=== PATIENT | female | born 1935 | race Caucasian/White ===

== ENCOUNTER → 2016-04-20 14:00 | Outpatient (CLI) | payer MEDICARE, OTHER ==
[~2016-04-20 14:00] MED LIST: ACETAMINOPHEN500 M1 PO; ASPIRIN325 MG PO; ATIVAN1 MG PO; AZO CRANBERRY PO; COLACE100 MG PO; COZAAR50 MG PO; DUONEB 2.5-0.5 M3 ML UPD; FERROUS SULFAT325 MG PO; HYDROCHLOROTHIA25 MG PO; HYDROCODON-ACE1 EAC7 PO; IPRAT-ALBUT 0.5-3 ML UPD; LEVAQUIN500 MG PO; LOVENOX40 MG/0.4 SC; MEDROL DOSE PACK4 MG PO; MUCINEX1200 MG/BO PO; MUCINEX600 MG PO; NEURONTIN 300300 MG PO; NORVASC2.5 MG PO; PLAVIX75 MG PO; PRAVACHOL20 MG PO; PRILOSEC20 MG PO; RESTORIL7.5 MG PO; SENOKOT-S TABLE1 TAB PO; SPIRIVA18 MCG INH; SYNTHROID50 MCG PO; TENORMIN25 MG PO; TUSSIONEX 5 ML S5 ML PO; VENTOLIN HFA18 GM INH
[2016-04-25 03:08] LABS: OVA + PARASITE EXAM Final report (())
== END | disposition home or self-care (01) ==
LOC: D.LABREF 14:00
PROVIDERS: Family Medicine
DX: R19.7 Diarrhea, unspecified (principal)

== ENCOUNTER 2016-10-29 02:22 | Inpatient (IN) | payer MEDICARE, OTHER ==
[~2016-10-29] VITALS: Ht 154.9 cm; Wt 46.1 kg
[2016-10-29 04:14] LABS: BASOPHILS 0.1 % (0-2); EOSINOPHILS 1.1 % (0-7); HEMATOCRIT 36.6 % (36.0-48.0); HEMOGLOBIN 12.2 g/dL (12-16); IMMATURE GRANULOCYTES 0.8 % (0-5); LYMPHOCYTES 6.1 % (15-50); MCH 30.3 pg (26.0-34.0); MCHC 33.3 g/dL (31.0-37.0); MEAN PLATELET VOLUME 8.7 fL (7.4-10.4); MONOCYTES 3.5 % (2-11); NEUTROPHILS 88.4 % (40-80); PLATELET COUNT 186 10x3/uL (130-400); RBC 4.02 10x6/uL (4.00-5.40); RDW 13.6 % (11.5-14.5)
[2016-10-29 04:30] LABS: ALBUMIN 3.6 g/dL (3.4-5.0); ANION GAP 11.4 mmol/L (8-16); BILIRUBIN - TOTAL 0.52 mg/dL (0.2-1.3); CALCIUM 9.1 mg/dL (8.5-10.1); CARBON DIOXIDE 28.1 mmol/L (21.0-32.0); CREATININE - SERUM 0.9 mg/dL (0.6-1.3); MAGNESIUM - SERUM 1.9 mg/dL (1.8-2.4); POTASSIUM - SERUM 4.5 mmol/L (3.5-5.1); PROTEIN - SERUM 6.3 g/dL (6.4-8.2)
--- NOTE | 2016-10-29 05:01 | NUR ---
RECEIVED FROM ER VIA STRETCHER. ALERT/ORIENTED X 4. RT ARM IN BLACK SLING. C/O RT SHOULDER AND RIB PAIN LEVEL 10 ON NUMBER SCALE. STATED SHE FELL OUT OF BED THIS MORNING. IV IN LEFT FA INTACT SL. ORIENTED TO ROOM AND CALL LIGHT.
[2016-10-29 05:30] VITALS: BP 180/55; BMI 18.7
--- NOTE | 2016-10-29 07:25 | NUR ---
REPORT RECEIVED FROM SOW FARM MANAGER NURSE. CALL LIGHT IN REACH.
[2016-10-29 08:24] VITALS: BP 148/59
--- NOTE | 2016-10-29 08:45 | NUR ---
ASSESSMENT COMPLETE. SL TO L FA. O2 2L NC. SLING IN USE TO R ARM. NONPRODUCTIVE COUGH. DENIES ANY NEEDS AT THIS TIME.
--- NOTE | 2016-10-29 10:03 | NUR ---
EYES CLOSED AT THIS TIME. RESP EVEN AND UNLABORED. CALL LIGHT IN REACH.
[2016-10-29 12:00] VITALS: BP 174/55
--- NOTE | 2016-10-29 12:29 | NUR ---
COMPLAINING OF PAIN. MORPHINE GIVEN SLOW IVP. REPOSITIONED IN BED AND TRAY SETUP TO EAT.
--- NOTE | 2016-10-29 14:20 | NUR ---
SCDs APPLIED TO BLE THERESA SHINE RN. HEART MONITOR ALSO PLACED ON THERESA SHINE.
--- NOTE | 2016-10-29 15:32 | NUR ---
NORCO AND ATENOLOL PO. PEPCID IVP. SCDs ON. CALL LIGHT IN REACH.
[2016-10-29 16:00] VITALS: BP 168/70
--- NOTE | 2016-10-29 18:20 | NUR ---
NO CHANGES IN INITIAL ASSESSMENT. SCDs TO BLE. DISPOSABLE BED ALARM IS ON. CALL LIGHT IN REACH. WILL CONTINUE WITH PLAN OF CARE.
[2016-10-29 19:00] VITALS: BP 117/98
--- NOTE | 2016-10-29 20:00 | NUR ---
ASSESSMENT PER FLOWSHEET. IV PATENT LEFT FOREARM SALINE LOCKED. SLING TO RT ARM. TELM. SHOWS SR. SR UP X2 CALL LIGHT WITHIN REACH. BOX ALARM ON. SCD'S ON.
--- NOTE | 2016-10-29 20:30 | NUR ---
PATIENT TRYING TO CLIMB OUT OF BED TOOK TELM. OFF AND ONE OF HER SCD'S TOOK HER SLING OFF HER RT ARM. ASSISTED BACK IN BED PLACED ADDISON BED ALARM MAT ON HER BED. ALARMS ACTIVATED.
--- NOTE | 2016-10-29 21:00 | NUR ---
MEDS GIVEN PER MAR.
--- NOTE | 2016-10-29 21:24 | NUR ---
RESLESS PULLING TELM. OFF TRYING TO GET OUT OF BED SETTING OFF ALARMS. REPOSITIONED IN BED ATIVAN 1MG PO GIVEN FOR RESTLESSNESS.
--- NOTE | 2016-10-29 23:00 | NUR ---
INC URINE LINENS CHANGED.
--- NOTE | 2016-10-30 00:30 | NUR ---
EYES CLOSED RESPIRATIONS WITH EASE AND UNLABORED.
--- NOTE | 2016-10-30 02:07 | NUR ---
EYES CLOSED RESPIRATIONS WITH EASE AND UNLABORED.
[2016-10-30 04:00] VITALS: BP 184/75
--- NOTE | 2016-10-30 04:00 | NUR ---
EYES CLOSED RESPIRATIONS WITH EASE AND UNLABORED.
--- NOTE | 2016-10-30 06:10 | NUR ---
INC URINE BED BATH WITH LINENS CHANGED. REPLACED HEART MONITOR. REACTIVATED ADDISON BED ALARM MAT. MEDS GIVEN PO IN APPLESAUCE. PT TALKING SEEMS TO BE MORE ALERT.
--- NOTE | 2016-10-30 08:20 | NUR ---
ASSESSMENT PER FLOW SHEET.PT WITHOUT DISTRESS,BUT VERY CONFUSED.02 AT 2 LITERS NASAL CANULA.PT REFUSES TO LET ME LISTEN TO HER HEART AND LUNGS.SHE STATES IS HAS BEEN DONE TWICE TODAY ALREADY AND SHE WASNT GOING TO HAVE IT DONE AGAIN.BRUISES NOTED TO RIGHT SHOULDER AND BACK.BRUISE NOTED TO LEFT INNER ANKLE.ADDISON MAT AND BOX ALARM IN PLACE AND FUNCTIONING.DOOR OPEN TO MONITOR
[2016-10-30 10:16] VITALS: BP 168/69
[2016-10-30 12:10] VITALS: BP 130/64
--- NOTE | 2016-10-30 12:15 | NUR ---
PULLING CLOTHES OFF AND 02 OFF.PT TRYING TO GET OUT OF BED.SAYS SHE HAS TO GO IN OFFICE BEFORE HER BOSS COMES BACK.MILDLY COMBATIVE.MEDS ORDERED PER JUN.
--- NOTE | 2016-10-30 13:12 | NUR ---
WOUND CARE CONSULT: PT REPORTS THAT SHE FELL OUT OF BED AND "FRACTURED HER HIPS" BUT THEN STATES THAT THEY WERE FIXED IN [place], [place]. ADDISON ALARM AND BOX ALARM ARE ON AND IN USE. PATIENT IS INCONTIENT OF URINE. WILL ASSISTANCE FROM PCT, PATIENT IS CLEANED AND BED LINENS ARE CHANGED. ENTIRE RIGHT SHOULDER SEEN WITH BRUISED AREA ALONG WITH THE INNER LEFT ANKLE A BRUISE. PATIENT IS MOVING BILATERAL LEGS AROUND WITH NO DISCOMFORT NOTED. WILL CARE WILL FOLLOW NEEDED.
[2016-10-30 13:42] VITALS: Ht 154.9 cm; Wt 46.1 kg
[2016-10-30 14:14] LABS: HEMATOCRIT 35.9 % (36.0-48.0); HEMOGLOBIN 12.4 g/dL (12-16); MCH 30.9 pg (26.0-34.0); MCHC 34.5 g/dL (31.0-37.0); MCV 89.5 fL (80.0-100.0); MEAN PLATELET VOLUME 8.4 fL (7.4-10.4); RBC 4.01 10x6/uL (4.00-5.40); RDW 14.1 % (11.5-14.5); WBC 18.1 10x3/uL (4.8-10.8)
[2016-10-30 14:27] LABS: APTT 29.8 SECONDS (22.8-39.4); INR 1.19 (0.85-1.17); PROTIME 14.9 SECONDS (11.6-15.0)
[2016-10-30 14:29] LABS: ANION GAP 11.7 mmol/L (8-16); CARBON DIOXIDE 27.4 mmol/L (21.0-32.0); CREATININE - SERUM 0.8 mg/dL (0.6-1.3); POTASSIUM - SERUM 4.1 mmol/L (3.5-5.1)
[2016-10-30 15:51] VITALS: BP 158/46
--- NOTE | 2016-10-30 17:25 | NUR ---
STILL CONFUSED.BOX AND BED ALARM ON AND FUNCTIONING.REMAINS WITHOUT CHANGE FROM INITIAL SHIFT ASSESSMENT.CONT PLAN OF CARE
[2016-10-30 19:00] VITALS: BP 163/61
--- NOTE | 2016-10-30 20:00 | NUR ---
ASSESSMENT PER FLOWSHEET. REMAINS CONFUSED. REFUSES TO WEAR FIGURE 8 BRACE. SALINE LOCK PATENT TO LEFT ARM SITE CLEAR. ADDISON BED ALARM MAT ON WITH BOX ALARM ON TELM. ON AT TIMES.
--- NOTE | 2016-10-30 21:00 | NUR ---
INC URINE COMPLETE BED CHANGE AND PARTIAL BATH. MEDS PER JUN.
--- NOTE | 2016-10-31 | NUR ---
RESTING WITH EYES CLOSED RESPIRATIONS WITH EASE AND UNLABORED.
--- NOTE | 2016-10-31 03:00 | NUR ---
INC URINE COMPLETE LINENS CHANGED WITH PARTIAL BATH.
[2016-10-31 04:00] VITALS: BP 113/63
[2016-10-31 06:02] LABS: BASOPHILS 0.1 % (0-2); EOSINOPHILS 0.1 % (0-7); HEMATOCRIT 34.5 % (36.0-48.0); HEMOGLOBIN 11.7 g/dL (12-16); IMMATURE GRANULOCYTES 0.4 % (0-5); LYMPHOCYTES 5.6 % (15-50); MCH 30.6 pg (26.0-34.0); MCHC 33.9 g/dL (31.0-37.0); MCV 90.3 fL (80.0-100.0); MEAN PLATELET VOLUME 9.5 fL (7.4-10.4); MONOCYTES 5.9 % (2-11); NEUTROPHILS 87.9 % (40-80); PLATELET COUNT 185 10x3/uL (130-400); RBC 3.82 10x6/uL (4.00-5.40); RDW 13.6 % (11.5-14.5); WBC 15.1 10x3/uL (4.8-10.8)
--- NOTE | 2016-10-31 06:53 | NUR ---
REMAINS CONFUSED BUT CAN TALK TO HER AND CAN MAKE SOME SENSE OF WHAT SHE SAYS. SR UP X3 CALL LIGHT WITHIN REACH.
--- NOTE | 2016-10-31 07:20 | NUR ---
ASSESSMENT PER FLOW SHEET.PT STILL CONFUSED THIS AM.SHE IS WITHOUT DISTRESS.FALL PREVENTION IN PLACE WITH ADDISON MAT AND BOX ALARM IN PLACE AND FUNCTIONING.DR. RICKS TO SEE PATIENT.DOOR OPEN TO MONITOR.
[2016-10-31 08:09] VITALS: BP 136/61
--- NOTE | 2016-10-31 08:18 | NUR ---
TO CT VIA BED
[2016-10-31 11:59] VITALS: BP 137/62
--- NOTE | 2016-10-31 15:04 | NUR ---
CM NOTE: CM CALLED (YUE LEAG. TO CALL CM) PATIENTS SPOUSE (COSTA) REGARDING D/C NEEDS AND PLANS. PATIENT IS TOO CONFUSED TO ANSWER QUESTIONS. CM WILL CALL AGAIN TOMORROW - IF NO CALL BACK TODAY.
[2016-10-31 15:19] VITALS: BP 154/58
[2016-10-31 19:00] VITALS: BP 187/61
--- NOTE | 2016-10-31 19:37 | NUR ---
REMAINS WITHOUT NEEDS.STILL CONFUSED.FALL PREVENTION IN PLACE.CONT PLAN OF CARE
--- NOTE | 2016-10-31 20:00 | NUR ---
ASSESSMENT PER FLOWSHEET. REMAINS CONFUSED TO PLACE AND TIME. SR UP X3 CALL LIGHT WITHIN REACH ADDISON BED ALARM MAT ON. DOOR OPENED. HOB UP 30DEGREES. WET COUGH NOTED AT TIMES.
--- NOTE | 2016-10-31 21:00 | NUR ---
MEDS GIVEN IN APPLESAUCE.
--- NOTE | 2016-10-31 22:30 | NUR ---
INC URINE BED BATH AND LINENS CHANGED DONE.
--- NOTE | 2016-11-01 02:00 | NUR ---
RESTING QUIETLY PULLS AT BED LINENS.
[2016-11-01 04:00] VITALS: BP 182/55
--- NOTE | 2016-11-01 04:30 | NUR ---
INC URINE IV PATENT LEFT WRIST OF D5NS INFUSING AT 75CC'S/HR SITE CLEAR. PARTIAL BED BATH WITH LINENS CHANGED DONE.
--- NOTE | 2016-11-01 06:00 | NUR ---
NO CHANGES IN ASSESSMENT. MEDS GIVEN PER JUN. IN APPLESAUCE.
--- NOTE | 2016-11-01 07:15 | NUR ---
CALL FROM FAMILY.PASSWORD CONFIRMED. THEY WILL BE HERE TO SEEPT IN 9 HOURS.
--- NOTE | 2016-11-01 07:30 | NUR ---
ASSESSMENT PER FLOW SHEET. TO SEE PT.SHE IS WITHOUT DISTRESS.SHE IS LESS CONFUSED THIS AM.LUNGS HOOD HAVE KRACKLES THROUGHOUT UPPER LOBES WITH UPPER AIRWAY CONGESTION.PT COUGHS WHEN COMMANDED,BUT NO SPUTUM IS NOTED.FALL PREVENTION IN PLACE WITH ADDISON MAT AND BOX ALARM IN PLACE AND FUNCTIONING.DOOR OPEN.
[2016-11-01 08:21] VITALS: BP 172/55
--- NOTE | 2016-11-01 08:30 | NUR ---
CALL FROM FAMILY AGAIN,PASSWORD CONFIRMED.PT UPDATE GIVEN
[2016-11-01 09:03] LABS: BASOPHILS 0.1 % (0-2); EOSINOPHILS 0.1 % (0-7); HEMATOCRIT 31.9 % (36.0-48.0); HEMOGLOBIN 10.7 g/dL (12-16); IMMATURE GRANULOCYTES 0.2 % (0-5); MCH 30.8 pg (26.0-34.0); MCHC 33.5 g/dL (31.0-37.0); MCV 91.9 fL (80.0-100.0); MEAN PLATELET VOLUME 9.4 fL (7.4-10.4); MONOCYTES 6.6 % (2-11); PLATELET COUNT 159 10x3/uL (130-400); RBC 3.47 10x6/uL (4.00-5.40); RDW 14.1 % (11.5-14.5); WBC 13.2 10x3/uL (4.8-10.8)
[2016-11-01 09:15] LABS: CALC OSMOLALITY 288 mosm/kg (275-300); CALCIUM 8.6 mg/dL (8.5-10.1); CARBON DIOXIDE 23.9 mmol/L (21.0-32.0); CHLORIDE - SERUM 108 mmol/L (98-107); GLUCOSE 169 mg/dL (74-106); POTASSIUM - SERUM 3.5 mmol/L (3.5-5.1); SODIUM 142 mmol/L (136-145); UREA NITROGEN 19 mg/dL (7-18)
[2016-11-01 09:21] LABS: CREATININE - SERUM 0.5 mg/dL (0.6-1.3); eGFR NON AFRICAN AMERICAN > 90 mL/min (90-120)
[2016-11-01 12:37] VITALS: BP 159/46
--- NOTE | 2016-11-01 14:05 | NUR ---
NUTRITION MONITORING & EVAL CHART REVIEWED. PT VISIT. TOLERATING MECH SOFT DIET BUT INTAKE REMAINS POOR. ~10% LUNCH. NOTE NPO AFTER MN. RD FOLLOWING
[2016-11-01 15:54] VITALS: BP 167/51
[2016-11-01 19:00] VITALS: BP 173/57
--- NOTE | 2016-11-01 20:00 | NUR ---
ASSESSMENT PER FLOWSHEET. IV PATENT LEFT WRIST OF D5NS AT 75CC'S/HR SITE CLEAR. SR UP X3 CALL LIGHT WITHIN REACH ADDISON BEDALARM MAT IN PLACE AND ACTIVATED. BILATERAL CRACKLES NOTED HOB UP 30 DEGREES. PT REMAINS CONFUSED. PT'S DAUGHTER AT BEDSIDE. SCD'S ON.
--- NOTE | 2016-11-01 21:15 | NUR ---
MEDS GIVEN PER MAR.
--- NOTE | 2016-11-01 21:30 | NUR ---
PT PULLS OUT IV DAUGHTER HAS GONE HOME FOR THE NIGHT. RESITED IV TO LEFT ARM #20X1 ATTEMPT. RESUMED IV FLUIDS. ARM WRAPPED IN GAUZE WRAP. TELM. SHOWS ST WITH HR 102. DAUGHTER STATES WILL SIGN PERMITS IN AM FOR SURGERY.
--- NOTE | 2016-11-01 22:00 | NUR ---
INC URINE LINENS CHANGED.
[2016-11-02] VITALS: BP 103/69
--- NOTE | 2016-11-02 | NUR ---
RESTING AT THIS TIME.
[2016-11-02 04:00] VITALS: BP 181/63
[2016-11-02 05:51] LABS: BASOPHILS 0.1 % (0-2); EOSINOPHILS 0.1 % (0-7); HEMATOCRIT 29.3 % (36.0-48.0); HEMOGLOBIN 9.8 g/dL (12-16); IMMATURE GRANULOCYTES 0.4 % (0-5); LYMPHOCYTES 4.2 % (15-50); MCHC 33.4 g/dL (31.0-37.0); MCV 92.7 fL (80.0-100.0); MEAN PLATELET VOLUME 9.5 fL (7.4-10.4); NEUTROPHILS 87.2 % (40-80); PLATELET COUNT 178 10x3/uL (130-400); RBC 3.16 10x6/uL (4.00-5.40); RDW 14.3 % (11.5-14.5)
[2016-11-02 06:02] LABS: CALC OSMOLALITY 286 mosm/kg (275-300); CALCIUM 8.4 mg/dL (8.5-10.1); CARBON DIOXIDE 26.3 mmol/L (21.0-32.0); CHLORIDE - SERUM 109 mmol/L (98-107); CREATININE - SERUM 0.6 mg/dL (0.6-1.3); GLUCOSE 123 mg/dL (74-106); POTASSIUM - SERUM 3.3 mmol/L (3.5-5.1); SODIUM 143 mmol/L (136-145); eGFR NON AFRICAN AMERICAN > 90 mL/min (90-120)
[2016-11-02 06:06] LABS: UREA NITROGEN 14 mg/dL (7-18)
[2016-11-02 06:07] LABS: WBC 9.6 10x3/uL (4.8-10.8)
--- NOTE | 2016-11-02 08:10 | NUR ---
ASSESSMENT COMPLETE. IV TO L FA PATENT. D5NS INFUSING AT 75 CC/HR VIA PUMP. O2 2L NC IN USE. CLINICAL DIRECTOR SHOWING SR 87 PER TECH. INCONT OF BLADDER. NPO. ADDISON MAT IN USE. SCD'S IN USE TO BILAT LEGS. DAUGHTER AT BEDSIDE.
[2016-11-02 08:15] VITALS: BP 139/55
[2016-11-02 08:37] LABS: % SATURATION 4 % (15-55); IRON 10 ug/dl (35-150); TOTAL IRON BIND CAPACITY 213 ug/dl (260-445); UNSAT IRON BIND CAPACITY 203 ug/dl (150-375)
[2016-11-02 11:41] VITALS: BP 123/57
--- NOTE | 2016-11-02 12:00 | NUR ---
NO CHANGES NOTED AT PRESENT. FAMILY AT BEDSIDE.
--- NOTE | 2016-11-02 14:44 | NUR ---
CM REASSESSMENT NOTE: PATIENT IS HAVING SURGERY TODAY/FAMILY AT BEDSIDE. FAMILY HOPING FOR IP REHAB AND THEN ONCE DISCHARGED FROM REHAB WOULD BE STRONG ENOUGH FOR TRAVEL TO [facility] HOME. CM WILL CONTINUE TO FOLLOW PATIENT WITH D/C NEEDS AND PLANS.
--- NOTE | 2016-11-02 14:51 | NUR ---
CM REASSESSMENT NOTE: PATIENT IS HAVING SURGERY TODAY/FAMILY AT BEDSIDE. FAMILY HOPING FOR IP REHAB AND THEN ONCE DISCHARGED FROM REHAB WOULD BE STRONG ENOUGH FOR TRAVEL TO [facility] HOME. CM WILL CONTINUE TO FOLLOW PATIENT WITH D/C NEEDS AND PLANS.
[2016-11-02 16:00] VITALS: BP 185/68
--- NOTE | 2016-11-02 17:00 | NUR ---
DR GARNETT BY TO SEE PATIENT. SURGERY IS RESCHEDULED FOR TOMORROW. PATIENT AND FAMILY AWARE.
[2016-11-02 22:49] VITALS: BP 102/47
[2016-11-03] VITALS (16 sets, daily range): BP systolic 143–199; BP diastolic 51–88
--- NOTE | 2016-11-03 04:45 | NUR ---
PT CONFUSED AND RESTLESS. CALLED DR. RICKS CONCERNING WET BREATH SOUNDS. TURNED DOWN IV FLUIDS TO KVO, GAVE LASIX IV PUSH AND PLACED DAVIDSON CATHETER PER TELEPHONE ORDER @ 2200. PT PULLED CATHETER OUT BULB INTACT 20 MINUTES AFTER PLACEMENT. PT THEN PULLED IV OUT. CHANGING BED FREQUENTLY. PT'S OXYGEN SATS ARE GOOD IF OXYGEN IS ON. OXYGEN @ 2.5L/NC. BUT PT CONSTANTLY TAKING OXYGEN OFF THEN DESATS. PT HAS NOT SLEPT THIS SHIFT. DAUGHTER AT BEDSIDE. WILL CONTINUE TO MONITOR.
[2016-11-03 06:22] LABS: BASOPHILS 0.1 % (0-2); EOSINOPHILS 0.2 % (0-7); HEMATOCRIT 33.6 % (36.0-48.0); HEMOGLOBIN 11.2 g/dL (12-16); IMMATURE GRANULOCYTES 0.3 % (0-5); LYMPHOCYTES 5.5 % (15-50); MCH 30.9 pg (26.0-34.0); MCHC 33.3 g/dL (31.0-37.0); MCV 92.6 fL (80.0-100.0); MEAN PLATELET VOLUME 9.2 fL (7.4-10.4); MONOCYTES 6.1 % (2-11); NEUTROPHILS 87.8 % (40-80); RBC 3.63 10x6/uL (4.00-5.40); RDW 14.1 % (11.5-14.5); WBC 11.7 10x3/uL (4.8-10.8)
[2016-11-03 06:26] LABS: PLATELET COUNT 237 10x3/uL (130-400)
[2016-11-03 06:42] LABS: CARBON DIOXIDE 27.8 mmol/L (21.0-32.0); CHLORIDE - SERUM 105 mmol/L (98-107); CREATININE - SERUM 0.7 mg/dL (0.6-1.3); GLUCOSE 99 mg/dL (74-106); SODIUM 145 mmol/L (136-145); eGFR NON AFRICAN AMERICAN 85 mL/min (90-120)
--- NOTE | 2016-11-03 06:52 | NUR ---
SITED IV 1ST ATTEMPT TO RIGHT FOREARM 20 GAUGE. PREOPED FOR SURGERY.
[2016-11-03 07:05] LABS: CALC OSMOLALITY 290 mosm/kg (275-300); UREA NITROGEN 19 mg/dL (7-18)
--- NOTE | 2016-11-03 07:25 | NUR ---
OFF FLOOR TO OR VIA BED. FAMILY DECIDED TO WAIT IN ICU WAITING ROOM.
[2016-11-03 08:20] LABS: FOLATE (FOLIC ACID) - SERUM 8.4 ng/mL (>3.0)
--- NOTE | 2016-11-03 09:40 | NUR ---
RECEIVED PT FROM OR POST ORIF RT SHOULDER, DENIES PT, HTN PRIOR TO SURGERY AND REMAINS IN THAT RANGE , DR. WARD AWARE.
--- NOTE | 2016-11-03 10:30 | NUR ---
RECIEVED PT TO ROOM FROM OR. VSS, BP 166/68. PRE OP HTN NOTED. CONNECTED TO ICU MONITORS. FULL ASSESSMENT COMPLETE PER FLOWSHEET. BED ALARM ON AND BED IN LOW POSITION. WILL MONITOR.
--- NOTE | 2016-11-03 10:54 | NUR ---
Nutrition Follow Up: Chart reviewed and spoke with RN. DHT placed and Pulmocare @ 10 ml/hr ordered per MD. Pt is s/p ORIF Clavicle. Wt stable. No BM since admit (x5 d). Labs reviewed. Meds noted including Lasix. Will put order in to advance TF 10 ml every 12 hours as tolerated to goal rate of 35 ml/hr. Water flushes 25 ml/hr. Goal rate will provide 1260 kcal, 52 g protein and 651 ml free water per day. 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 RD will continue to monitor pt progress.
--- NOTE | 2016-11-03 12:00 | NUR ---
FAMILY AT BEDSIDE. UPDATE PROVIDED.
[2016-11-03 13:17] LABS: HAPTOGLOBIN <10 mg/dL (34-200)
--- NOTE | 2016-11-03 13:50 | NUR ---
1245-PT PULLED DOBHOFF OUT OF NOSE. WILL REPORT TO DR. RICKS. 1330- 16F DAVIDSON CATHETER PLACED AND 14F NGT DROPPED. PT NOT COOPERATIVE WHILE TRYING TO PLACED DAVIDSON AND NGT. WILL CALL REPORT TO PHYSICIAN.
--- NOTE | 2016-11-03 15:00 | NUR ---
FAMILY AT BEDSIDE.
--- NOTE | 2016-11-03 15:33 | NUR ---
DR. ERICKSON UPDATED FAMILY. QUESTIONS AND CONCERNS ANSWERED.
--- NOTE | 2016-11-03 15:53 | NUR ---
SPOKE WITH MICHELLE ISBELL. STATES SHE WILL SPEAK TO DR. GARNETT ABOUT XRAY AND CALL BACK IF XRAY NEEDS TO BE CANCELLED.
--- NOTE | 2016-11-03 17:15 | NUR ---
PT REMAINS RESTRAINED. MORE COOPERATIVE AT THIS TIME. BP IMPROVING NOW 111/71. REMAINS ON 4L OXYMIZER. WILL CONT TO ASSESS.
--- NOTE | 2016-11-03 18:48 | NUR ---
PT TOO CONFUSED TO PERFORM EZPAP
--- NOTE | 2016-11-03 19:45 | NUR ---
PT CONFUSED AND DISORIENTED X3. UNABLE TO FOLLOW MOST COMMANDS AT THIS TIME. RIGHT SHOULDER WITH DSG CDI, NO S/S OF BLEEDING PRESENT. NO C/O PAIN AT THIS TIME. PT REPOSITIONED WITH BONY PROMINENCES BRIDGED. S1S2 AUSCULTATED, PERIPHERAL PULSES PRESENT. RESPIRATIONS SHALLOW, LUNG SOUNDS CRACKLES. SPO2 96 WITH YL O2 VIA OXYMIZER. BOWEL SOUNDS ACTIVE X4. DAVIDSON CATH INTACT. PT ATTEMPT TO PULL AT NGT, NC, DAVIDSON, AND IV LINES. BILATERAL WRIST RESTRAINTS IN USE. PT TOO CONFUSED TO USE INCENTIVE SPIROMETER. WILL USE FLUTTER SOME. WILL CONTINUE TO MONITOR.
--- NOTE | 2016-11-03 23:40 | NUR ---
PT HAS PULLED NGT OUT. REMAINS CONFUSED AND DISORIENTED. UNABLE TO REINSERT NGT DUE TO TRAUMA. WILL NOTIFY IN AM.
[2016-11-04] VITALS (24 sets, daily range): BP systolic 128–176; BP diastolic 56–71
--- NOTE | 2016-11-04 03:45 | NUR ---
REASSESSMENT COMPLETE, SEE FLOWSHEET FOR ALL FINDINGS. NO ACUTE CHANGES AT THIS TIME. PT REPOSITIONED FOR COMFORT. ORAL CARE PROVIDED. PARTIAL LINEN CHANGE COMPLETE. UNABLE TO USE INCENTIVE SPIROMETER/FLUTTER AT THIS TIME DUE TO CONFUSION.
[2016-11-04 05:02] LABS: BASOPHILS 0 % (0-2); EOSINOPHILS 0 % (0-7); HEMATOCRIT 32.7 % (36.0-48.0); HEMOGLOBIN 10.9 g/dL (12-16); IMMATURE GRANULOCYTES 0.3 % (0-5); LYMPHOCYTES 3.8 % (15-50); MCH 30.2 pg (26.0-34.0); MCHC 33.3 g/dL (31.0-37.0); MONOCYTES 6.3 % (2-11); NEUTROPHILS 89.6 % (40-80); PLATELET COUNT 262 10x3/uL (130-400); RBC 3.61 10x6/uL (4.00-5.40); RDW 13.8 % (11.5-14.5); WBC 12.8 10x3/uL (4.8-10.8)
[2016-11-04 05:15] LABS: MCV 90.6 fL (80.0-100.0)
[2016-11-04 05:23] LABS: CALC OSMOLALITY 289 mosm/kg (275-300); CALCIUM 9.1 mg/dL (8.5-10.1); CARBON DIOXIDE 29.7 mmol/L (21.0-32.0); CHLORIDE - SERUM 104 mmol/L (98-107); CREATININE - SERUM 0.7 mg/dL (0.6-1.3); GLUCOSE 110 mg/dL (74-106); SODIUM 143 mmol/L (136-145); eGFR NON AFRICAN AMERICAN 85 mL/min (90-120)
[2016-11-04 05:33] LABS: UREA NITROGEN 24 mg/dL (7-18)
--- NOTE | 2016-11-04 05:48 | NUR ---
UPDATED MD OF PT STATUS. MD AWARE OF ABSENCE OF NGT.
--- NOTE | 2016-11-04 18:56 | NUR ---
0715-RECIEVED PER-FLOW SHEET- SPEECH GARBLED-DIFFICULT TO UNDERSTAND-DOES NOT FOLLOW COMMANDS-SOFT RESTRAINTS IN PLACE 0900-DR BUENROSTRO AT [facility]-ICE BAG REMOVED-OKAYED COMPLETE ROM TO R ARM 1200-PT ABLE TO STATE-LOCATION TO FAMILY AND CLEARER SPEECH PATTERN 1600-DANGLED AT [facility]-ORDER PLACED FOR SPEECH CONSULT 1700-RESTING QUIETLY
--- NOTE | 2016-11-04 19:30 | NUR ---
PT CONFUSED AND DISORIENTED X3. BILATERAL WRIST RESTRAINTS IN PLACE. PT REPOSITIONED WITH A PARTIAL LINEN CHANGE COMPLETE AT THIS TIME. RIGHT SHOULDER WITH DSG CDI, NO S/S OF BLEEDING. RESPIRATIONS NON LABORED AT THIS TIME. S1S2 AUSCULTATED, PERIPHERAL PULSES PRESENT. ORAL CARE ADM. VSS. CPOC.
--- NOTE | 2016-11-04 23:33 | NUR ---
PT TOO CONFUSED TO PERFORM FLUTTER/IS. UNABLE TO FOLLOW COMMANDS. PT REPOSITIONED FOR COMFORT WITH BONY PROMINENCES BRIDGED. ORAL CARE ADM. NO S/S OF DISTRESS. CPOC.
[2016-11-05] VITALS (23 sets, daily range): BP systolic 107–187; BP diastolic 37–73
--- NOTE | 2016-11-05 01:30 | NUR ---
PT REPOSITIONED WITH BONY PROMINENCES BRIDGED. ORAL CARE ADM.
--- NOTE | 2016-11-05 03:30 | NUR ---
REASSESSMENT COMPLETE, NO NEW FINDINGS AT THIS TIME. PT RESTING QUIETLY. WILL CONTINUE TO MONITOR.
--- NOTE | 2016-11-05 05:21 | NUR ---
PT RESTING QUIETLY WITH EYES CLOSED AND NON LABORED RESPIRATIONS. VSS. NO S/S OF DISTRESS AT THIS TIME. CPOC.
[2016-11-05 05:36] LABS: BASOPHILS 0.1 % (0-2); EOSINOPHILS 0.3 % (0-7); HEMATOCRIT 31.6 % (36.0-48.0); HEMOGLOBIN 10.4 g/dL (12-16); IMMATURE GRANULOCYTES 0.9 % (0-5); LYMPHOCYTES 7.6 % (15-50); MCH 30.3 pg (26.0-34.0); MCHC 32.9 g/dL (31.0-37.0); MCV 92.1 fL (80.0-100.0); MEAN PLATELET VOLUME 9.1 fL (7.4-10.4); MONOCYTES 8.1 % (2-11); PLATELET COUNT 271 10x3/uL (130-400); RBC 3.43 10x6/uL (4.00-5.40); RDW 13.9 % (11.5-14.5)
[2016-11-05 05:50] LABS: WBC 9.2 10x3/uL (4.8-10.8)
[2016-11-05 05:57] LABS: CALC OSMOLALITY 289 mosm/kg (275-300); CARBON DIOXIDE 32.5 mmol/L (21.0-32.0); CHLORIDE - SERUM 107 mmol/L (98-107); CREATININE - SERUM 0.6 mg/dL (0.6-1.3); GLUCOSE 107 mg/dL (74-106); PHOSPHOROUS 3.9 mg/dL (2.5-4.9); POTASSIUM - SERUM 3.2 mmol/L (3.5-5.1); PRO BNP 1095 pg/mL (0-450); SODIUM 143 mmol/L (136-145); UREA NITROGEN 27 mg/dL (7-18); eGFR NON AFRICAN AMERICAN > 90 mL/min (90-120)
--- NOTE | 2016-11-05 11:16 | NUR ---
RECIEVED PER FLOW [id number] WITH PERSISTANT-NOT AWARE OF SURROUNDINGS-WITH PROMPTING ABLE TO REVIEW RECENT EVENTS AND STATES [facility] CALLED UNIT FOR SCHEDULED CTA-NOTIFIED DR ERICKSON
--- NOTE | 2016-11-05 14:31 | NUR ---
1030-PT TO CT SCAN VERIFIED BY DR ERICKSON-O2 AT 4L -RN AND EXERCISE PHYSIOLOGY PROFESSOR VIA BED-CONFIRMED BY DR BUENROSTRO FOR 100% ROM TO R ARM-L IV EDEMATOUS AT SITE AND LEAKING-SAME D/C-R IV 20 JEREMIAH AND PATENT-IV SALINE LOCKED AND PT TO CT SCAN 1115-RETURNED TO UNIT TO MOMITOR O2 AT 4L -R PERIPHERAL IV REMAINS PATENT-IV D5NS AT 30 ML/H STARTED ORDERED 1145-SPEECH EVAL AND PHYSICAL THERAPY AT BEDSIDE-PT TO BEDSDIE- CHAIR-75% ASSIST REQUIRED-PT ABLE TO EASILY FOLLOW DIRECTION-ABLE TO STATE SITUATION AND LOCATION-SPEECH CLEAR-EVAL IN PROGRESS
--- NOTE | 2016-11-05 14:39 | NUR ---
1215-PT ASSISTED WITH PUREED MEAL AND ENSURE-TOLERATING WELL-DAUGHTERS AT BEDSIDE-PT ABLE TO CONVERSE EASILY- 1300-DR ERICKSON AT BEDSIDE-SPOKE WITH PT AND DAUGHTERS REGARDING NEED FOR THOARACENTESIS-OUTLINED BENEFIT AND RISK -QUESTIONS ADDRESSEDKBRN 1340-PT RETURNED TO BED WITH PHYSICAL THERAPY-REQUIRED 80% ASSIST-ASSISTED TO BEDPAN 1400-DR LY AT [facility]-PT ALERT-KBRN 1415-REMOVED OFF BEDPAN
--- NOTE | 2016-11-05 18:22 | NUR ---
SPOKE WITH DR. ERICKSON CONCERNING CONSULT. STATES TO HOLD LOVENOX UNTIL AFTER PROCEDURE TOMORROW AND CONTINUE WITH NPO AFTER MIDNIGHT ORDER ALREADY IN PLACE.
--- NOTE | 2016-11-05 19:00 | NUR ---
REPORT RECEIVED AND ASSESMENT COMPLETED. SEE FLOWSHEET FOR FULL DETAILS. PT IS POST CLAVICLE REPAIR BY DR GARNETT. FRACTURES PRESENT RIGHT RIBS 4-9. NO FLAIL CEST. PT STATED SHE BELIEVED THE YEAR TO BE 2004. ORIENTED OTHERWISE. VSS. SCHEDULED FOR THRACENTESIS TOMORROW. VSS. WILL MONITOR THROUGHOUT SHIFT
--- NOTE | 2016-11-05 21:00 | NUR ---
2100 MEDS GIVEN. PT C/O ABD PAIN AT THIS TIME. PRN NORCO GIVEN. NO OTHER CHANGES IN STATUS AT THIS TIME. VSS. WILL CONTINUE TO MONITOR
--- NOTE | 2016-11-05 23:00 | NUR ---
2300 REASSESSMENT COMPLETED. PT STILL HAS C/O ABD PAIN. DR LY CONTACTED. NEW ORDERS RECEIVED FOR MIRALAX 17 PO BID. WILL ADMINISTER.
[2016-11-06] VITALS (22 sets, daily range): BP systolic 126–165; BP diastolic 41–95
--- NOTE | 2016-11-06 01:00 | NUR ---
no changes in patient status at this time. pt repositioned for comfort. will continue to monitor
--- NOTE | 2016-11-06 03:00 | NUR ---
REASSESSMENT COMPLETED SEE FLOWSHEET FOR FULL DETAILS. NO OTHER CHANGES IN STATUS AT THIS TIME. VSS WILL CONTINUE TO MONITOR.
[2016-11-06 04:05] LABS: BASOPHILS 0.1 % (0-2); EOSINOPHILS 0 % (0-7); HEMATOCRIT 30.8 % (36.0-48.0); HEMOGLOBIN 9.9 g/dL (12-16); IMMATURE GRANULOCYTES 1.1 % (0-5); LYMPHOCYTES 5.4 % (15-50); MCH 29.9 pg (26.0-34.0); MCHC 32.1 g/dL (31.0-37.0); MCV 93.1 fL (80.0-100.0); MEAN PLATELET VOLUME 8.9 fL (7.4-10.4); MONOCYTES 5.8 % (2-11); NEUTROPHILS 87.6 % (40-80); PLATELET COUNT 288 10x3/uL (130-400); RBC 3.31 10x6/uL (4.00-5.40); RDW 13.9 % (11.5-14.5)
[2016-11-06 04:08] LABS: WBC 12.4 10x3/uL (4.8-10.8)
[2016-11-06 04:13] LABS: APTT 29.8 SECONDS (22.8-39.4); INR 1.04 (0.85-1.17); PROTIME 13.5 SECONDS (11.6-15.0)
[2016-11-06 04:17] LABS: ALBUMIN 2.4 g/dL (3.4-5.0); ANION GAP 12.2 mmol/L (8-16); BILIRUBIN - TOTAL 0.47 mg/dL (0.2-1.3); CALCIUM 8.8 mg/dL (8.5-10.1); CARBON DIOXIDE 27.3 mmol/L (21.0-32.0); CREATININE - SERUM 0.8 mg/dL (0.6-1.3); MAGNESIUM - SERUM 1.9 mg/dL (1.8-2.4); PHOSPHOROUS 3.1 mg/dL (2.5-4.9); POTASSIUM - SERUM 3.5 mmol/L (3.5-5.1); PROTEIN - SERUM 5.3 g/dL (6.4-8.2)
--- NOTE | 2016-11-06 05:28 | NUR ---
PT FECAL IMPACTION NOTED. DIGITAL REMOVAL PERFORMED. WAS ABLE TO GET A MEDIUM AMOUNT OF STOOL OUT; HOWEVER THERE IS STILL SOME STOOL OUT OF REACH. PRN TYLENOL SUPPOSITORY GIVEN TO ALLEVIATE PAIN UNTIL STOOL DECENENDS FURTHER. ENEMA MAY BE NEEDED. WILL CONTINUE TO MONITOR.
--- NOTE | 2016-11-06 07:15 | NUR ---
REPORT RECIEVED FROM FRONT DESK SPECIALIST NURSE. CARE ASSUSUMED.
--- NOTE | 2016-11-06 08:23 | NUR ---
PT TAKEN TO SPECIALS BY BED. FAMILY FOLLOWED PT DOWN TO SPECIALS.
--- NOTE | 2016-11-06 08:45 | NUR ---
DR. RICKS AT BEDSIDE. PROVIDED UPDATE.
--- NOTE | 2016-11-06 09:30 | NUR ---
DAUGHTERS AT BEDSIDE. PT RESTING QUIELTLY. DENIES NEEDS.
--- NOTE | 2016-11-06 10:15 | NUR ---
NUTRITION MONITORING & EVAL CHART REVIEWED, PT VISIT. TOLERATING PUREED DIET. ~25% BREAKFAST. NURSING REPORTS POSSIBLE TX TO FLOOR. RD FOLLOWING
[2016-11-06 10:29] LABS: PROTEIN - BODY FLUID 2.8 G/DL
--- NOTE | 2016-11-06 11:23 | NUR ---
Rehab prescreen ordered. Anticipate transfer to floor later today. CM will follow & assist as needed.
--- NOTE | 2016-11-06 11:30 | NUR ---
ASSISTED UP IN BED. LUNCH TRAY PLACED ON BST. DENIES FURTHER NEEDS. NO ISSUES NOTED WHEN SWALLOWING. WILL CONT TO ASSESS.
[2016-11-06 11:42] LABS: EOS BF 3 %; LYMPH - BF 9 %; MACROPHAGES BF 15 %; MESOTHELIALS BF 16 %; NEUT - BF 57 %
--- NOTE | 2016-11-06 11:55 | NUR ---
Rehab Prescreening Consult recieved and the chart has been reviewed. She is a good IRF candidate. She had a PT eval yesterday, but has not ambulated yet. Rehab will follow her progress with PT and accept her when she is medically stable and able to tolerate 3 hrs of therapy every day 5 days a week. Abiola Myles RN Clinical Liaison, Rehab
--- NOTE | 2016-11-06 15:15 | NUR ---
FECAL COMPACTION NOTED. DIGITALLY REMOVED SMALL AMOUNT OF BROWN FORMED STOOL. 1000CC SOAP SUDS ENEMA PROVIDED. PT TOLERATED WELL. SMALL LIQUID DM NOTED POST ADMINISTRATION. WILL CONT TO MONITOR.
--- NOTE | 2016-11-06 15:30 | NUR ---
FULL BED BATH AND LINEN CHANGE PROVIDED.
--- NOTE | 2016-11-06 16:30 | NUR ---
PT RESTING IN BED QUIETLY. NO SIGNS OF DISTRESS NOTED. WILL CONT TO ASSESS.
--- NOTE | 2016-11-06 18:00 | NUR ---
DAUGHTERS AT BEDSIDE. UPDATE PROVIDED.
--- NOTE | 2016-11-06 19:00 | NUR ---
REPORT RECEIVED AND ASSESSMENT COMPLETED. SEE FLOWSHEET FOR FULL DETAILS. PT IS POST FALL FROM ASSISTED LIVING. CLAVICLE REPAIR COMPLETED AND RIBS 4-9 FRACTURED. THORACENTESIS COMPLETED THIS AM. 600 ML BLOODY FLUID REMOVED. NO SIGNS OF FLAIL CHEST. LUNG SOUNDS DIMMINISHED. WILL CONTINUE TO MONITOR THROUGHOUT SHIFT
--- NOTE | 2016-11-06 21:00 | NUR ---
2100 MEDS GIVEN. NO OTHER CHANGES AT THIS TIME. PT STATES THAT SHE IS STILL HAVING SOME ABDOMINAL PAIN; HOWEVER, REFUSES ATTEMPT OF DIGITAL REMOVAL OF IMPACTION AT THIS TIME.
--- NOTE | 2016-11-06 23:00 | NUR ---
NO CHANGES IN PT STATUS AT THIS TIME.
[2016-11-07] VITALS (15 sets, daily range): BP systolic 117–173; BP diastolic 42–97
--- NOTE | 2016-11-07 01:12 | NUR ---
PT GIVEN PRN TYLENOL FOR PAIN. HEA TPAD PROVIDED FOR DISCOMFORT. VSS. WILL MONITOR
--- NOTE | 2016-11-07 03:00 | NUR ---
PT HAD 1 LOOSE BM. STATES SHE FEELS SIGNIFICANTLY BETTER AFTER BM. DAVIDSON CARE COMPLETED AGAIN AFTER BM. NO OTHER CHANGES AT THIS TIME. WILL MONITOR
--- NOTE | 2016-11-07 05:00 | NUR ---
NO CHANGES IN PT STATUS AT THIS TIME. VSS. WILL MONITOR
[2016-11-07 05:32] LABS: BASOPHILS 0.1 % (0-2); EOSINOPHILS 0.1 % (0-7); HEMOGLOBIN 9.4 g/dL (12-16); IMMATURE GRANULOCYTES 1.2 % (0-5); LYMPHOCYTES 7.7 % (15-50); MCH 30.3 pg (26.0-34.0); MCHC 32.4 g/dL (31.0-37.0); MCV 93.5 fL (80.0-100.0); MEAN PLATELET VOLUME 8.5 fL (7.4-10.4); MONOCYTES 4.6 % (2-11); NEUTROPHILS 86.3 % (40-80); PLATELET COUNT 266 10x3/uL (130-400); RDW 14.1 % (11.5-14.5); WBC 13.9 10x3/uL (4.8-10.8)
[2016-11-07 05:59] LABS: ALBUMIN 2.4 g/dL (3.4-5.0); ALKALINE PHOSPHATASE 91 U/L (46-116); ALT (SGPT) 26 U/L (10-68); CALCIUM 8.9 mg/dL (8.5-10.1); CARBON DIOXIDE 31.4 mmol/L (21.0-32.0); CHLORIDE - SERUM 103 mmol/L (98-107); CREATININE - SERUM 0.6 mg/dL (0.6-1.3); GLUCOSE 120 mg/dL (74-106); SODIUM 139 mmol/L (136-145); eGFR NON AFRICAN AMERICAN > 90 mL/min (90-120)
[2016-11-07 06:01] LABS: CALC OSMOLALITY 280 mosm/kg (275-300); POTASSIUM - SERUM 4.5 mmol/L (3.5-5.1); UREA NITROGEN 17 mg/dL (7-18)
--- NOTE | 2016-11-07 07:30 | NUR ---
REPORT RECIEVED FROM HVAC DESIGN ENGINEER NURSE. PT RESTING IN BED QUIETLY. VSS AT THIS TIME. DR. RICKS AT BEDSIDE.
--- NOTE | 2016-11-07 10:30 | NUR ---
PARTIAL LINEN CHANGE PROVIDED. SMALL LIQUID BM NOTED TO PINK PAD. TURNED AND REPOSITIONED FOR COMFORT. CALL LIGHT PLACED IN REACH. WILL CONT TO ASSESS FOR CHANGES.
--- NOTE | 2016-11-07 10:30 | NUR ---
DAUGHTER CALLED. UPDATE PROVIDED.
--- NOTE | 2016-11-07 12:00 | NUR ---
DAUGHTERS AT BEDSIDE.
--- NOTE | 2016-11-07 12:15 | NUR ---
PT AT BEDSIDE TO ASSIST PT OOB. PT STATED SHE NEEDED TO HAVE A BM. PLACED ON BSC. SMALL AMOUNT OF FORMED STOOL NOTED. UPON ASSESSMENT OF RECTUM PT NOTED TO BE IMPACTED. DIGITAL EVACUATION COMPLETED. LARGE AMOUNT OF HARD FORMED STOOL REMOVED FROM RECTUM. SUGGESTED ENEMA AGAIN TO PT. CONTINUES TO REFUSE. WILL CONT TO ASSESS.
--- NOTE | 2016-11-07 14:00 | NUR ---
PT REMAINS IN RECLINER. STATED SHE WAS COLD. WARM BLANKET PROVIDED. CALL LIGHT IN REACH. DENIES FURTHER NEEDS. WILL CONT TO ASSESS FOR CHANGES .
--- NOTE | 2016-11-07 15:30 | NUR ---
PT AT BEDSIDE TO ASSIST PT BACK TO BED. TOLERATED WELL. CALL LIGHT IN REACH. BED IN LOW POSITION. VSS. WILL CONT TO ASSESS.
--- NOTE | 2016-11-07 18:00 | NUR ---
DAUGHTER AT BEDSIDE FOR VISITATION.
[2016-11-07 19:10] LABS: ACID FAST SMEAR Negative (()); AFB SPECIMEN PROCESSING Concentration (())
--- NOTE | 2016-11-07 19:30 | NUR ---
REPORT RECEIVED AND CARE ASSUMED. SHIFT ASSESSMENT COMPLETED. PT CONTINUES IN CVICU ALTHOUGH TRANSFER ORDERS TO MED SURG ARE ON THE CHART. AWAITING ROOM NUMBER ASSIGNMENT. PT NOTED TO BE ON 4L O2 AND TOLERATING WELL. LUNGS DIMINISHED IN BASES. DOING 750 CONSISTENTLY ON IS. ENCOURAGED TO CONTINUE TO DO THIS ON HER OWN AND PT VERBALIZES COMPREHENSION. DRESSING TO RIGHT SHOULDER CDI AND NO ORDERS TO CHANGE THIS SURGICAL DRESSING. CONTINUE TO MONITOR PER STANDARD PROTOCOL FOR MONITORING OF TRANSFER PATIENTS. ALL ALARMS VERIFIED AND SET. ALL IV LINES ARE CURRENT AND NOT DUE TO BE CHANGED UNTIL 11/08/16, PROPERLY LABELED. IVF DUE TO BE CHANGED AND WILL DO SO DOCUMENTING ON MAR AND LABEL APPROPRIATE.
--- NOTE | 2016-11-07 21:00 | NUR ---
NO VISITORS AT THIS TIME. PT STATES SHE IS COLD AND WARM BLANKET LAID OVER HER. RESP REG AND NONLABORED
--- NOTE | 2016-11-07 23:40 | NUR ---
PT HAS BEEN SLEEPING BUT C/O HEADACHE AT THIS TIME. MEDS GIVEN DOCUMENTED ON JUN. PT AAOX4 AT THIS TIME. DENIES FURTHER NEEDS. F/C CARE DONE AND ASSISTED WITH TURNING AND REPOSTIONING. CALL LIGHT IN REACH BED IN LOW POSITION
--- NOTE | 2016-11-08 00:15 | NUR ---
PT SLEEPING NO FURTHER C/O HEADACHE
[2016-11-08 01:00] VITALS: BP 111/38
--- NOTE | 2016-11-08 01:53 | NUR ---
REPORT CALLED TO QUAN NICK RN PT TO BE TRANSFERRED TO ROOM 6464
--- NOTE | 2016-11-08 02:18 | NUR ---
REC'D TO ROOM 2215 FROM ICU PER BED POST OP REPAIR OF RT CLAVICLE FRACTURE AN 81 Y/O W/FE PER RADHA GARNETT. DRESSING TO RT SHOULDER C/D/I. O2 ON 2 L/M PER NC. IV PATENT LEFT ARM OF D5NS AT 50CC'S/HR. SITE CLEAR. BED ALARM TURNED ON.EYES CLOSED RESPIRATIONS WITH EASE AND UNLABORED.
--- NOTE | 2016-11-08 06:37 | NUR ---
MEDS GIVEN PER MAR RESTING QUIETLY NO CHANGES IN ASSESSMENT.
--- NOTE | 2016-11-08 07:45 | NUR ---
PT AOX4 RESP EVEN AND NONLABORED PT DENIES NEEDS AT THIS TIME IV TO LEFT WRIST PATENT AND INTACT AT THIS TIME SRX2 BED AT LOWEST SETTING CALL LIGHT WITHIN REACH WILL CONTINUE TO MONITOR
[2016-11-08 07:50] LABS: BASOPHILS 0.1 % (0-2); EOSINOPHILS 0.4 % (0-7); HEMATOCRIT 33.3 % (36.0-48.0); HEMOGLOBIN 10.6 g/dL (12-16); IMMATURE GRANULOCYTES 2.4 % (0-5); LYMPHOCYTES 6.1 % (15-50); MCHC 31.8 g/dL (31.0-37.0); MCV 94.3 fL (80.0-100.0); MEAN PLATELET VOLUME 9.3 fL (7.4-10.4); MONOCYTES 2.2 % (2-11); NEUTROPHILS 88.8 % (40-80); PLATELET COUNT 277 10x3/uL (130-400); RBC 3.53 10x6/uL (4.00-5.40); RDW 14.3 % (11.5-14.5); WBC 13.4 10x3/uL (4.8-10.8)
[2016-11-08 08:00] LABS: CALC OSMOLALITY 276 mosm/kg (275-300); CALCIUM 8.5 mg/dL (8.5-10.1); CARBON DIOXIDE 30.5 mmol/L (21.0-32.0); CHLORIDE - SERUM 103 mmol/L (98-107); CREATININE - SERUM 0.6 mg/dL (0.6-1.3); GLUCOSE 95 mg/dL (74-106); POTASSIUM - SERUM 4.3 mmol/L (3.5-5.1); SODIUM 139 mmol/L (136-145); eGFR NON AFRICAN AMERICAN > 90 mL/min (90-120)
[2016-11-08 08:01] LABS: UREA NITROGEN 9 mg/dL (7-18)
[2016-11-08 08:42] VITALS: BP 165/54
[2016-11-08 10:20] LABS: FUNGUS STAIN Final report (())
[2016-11-08 11:56] VITALS: BP 129/51
--- NOTE | 2016-11-08 12:20 | NUR ---
NUTRITION MONITORING & EVAL CHART REVIEWED. PT TOLERATING PUREED DIET. POOR PO INTAKE. ADDED FERNANDA ENSURE TO MEALS. RD FOLLOWING
[2016-11-08] MEDS ORDERED: CLEOCIN PREMIX600 MG IV (13:15)
[2016-11-08] MEDS ORDERED: Levaquin PREMIX IV (13:15)
[2016-11-08] MEDS ORDERED: NICODERM C1 PATCH .1 TRANSDERM (13:15)
[2016-11-08] MEDS ORDERED: PLAVIX75 MG PO (13:16)
[2016-11-08] MEDS ORDERED: LOVENOX40 MG/0.4 SC (13:16)
[2016-11-08] MEDS ORDERED: FERROUS SULFAT325 MG PO (13:16)
[2016-11-08 15:06] VITALS: BP 134/39
--- NOTE | 2016-11-08 17:16 | NUR ---
PT TRANSPORTED VIA WHEELCHAIR TO IN PATIENT REHAB AT THIS TIME
== END 2016-11-08 17:16 | DRG 515 ==
LOC: D.ER 02:22 → D.CVICU 04:25 → D.MS 04:25 → D.CVICU 11-03 09:16 → D.ICU 11-07 15:35 → D.CVICU 11-07 15:52 → D.MS 11-08 02:06
PROVIDERS: Emergency Medicine; Internal Medicine Pulmonary Disease; Orthopaedic Surgery; ADMIT Family Medicine
PROC: 0PS904Z Reposition Right Clavicle with Internal Fixation Device, Open Approach (ICD-10-PCS; principal; 2016-11-03 07:30)
PROC: 0W993ZZ Drainage of Right Pleural Cavity, Percutaneous Approach (ICD-10-PCS; 2016-11-06)
DX: S42.031A Displaced fracture of lateral end of right clavicle, initial encounter for closed fracture (principal); J96.90 Respiratory failure, unspecified, unspecified whether with hypoxia or hypercapnia; G93.41 Metabolic encephalopathy; S22.41XA Multiple fractures of ribs, right side, initial encounter for closed fracture; J94.2 Hemothorax; J44.1 Chronic obstructive pulmonary disease with (acute) exacerbation; W06.XXXA Fall from bed, initial encounter; E78.5 Hyperlipidemia, unspecified; I25.10 Atherosclerotic heart disease of native coronary artery without angina pectoris; I10 Essential (primary) hypertension; E03.9 Hypothyroidism, unspecified; F17.200 Nicotine dependence, unspecified, uncomplicated; I70.229 Atherosclerosis of native arteries of extremities with rest pain, unspecified extremity; R41.0 Disorientation, unspecified; R13.14 Dysphagia, pharyngoesophageal phase; R13.12 Dysphagia, oropharyngeal phase

== ENCOUNTER 2016-11-08 17:05 | Inpatient (IN) | payer MEDICARE, OTHER ==
[~2016-11-08] VITALS: Ht 154.9 cm; Wt 44.9 kg
[~2016-11-08 17:05] MED LIST changes: +CLEOCIN PREMIX600 MG IV; +Levaquin PREMIX IV; +NICODERM C1 PATCH .1 TRANSDERM
[2016-11-08 18:29] VITALS: BP 116/75; BMI 18.7
--- NOTE | 2016-11-08 19:50 | NUR ---
PT IN BED WITH HOB UP FOR COMFORT. WATCHING TV. RIGHT SHOULDER INCISION AND KYMBERLY CLEANSED WITH WOUND SPRAY AND 4X4'S, ISLAND DRESSING APPLIED. PT TOLERATED PROCEDURE WELL. PT IS ALERT & ORIENTED. DAVIDSON CATH. O2 @ 2L. LEFT FA SALINE LOC. BED IN LOWEST POSITION AND CALL LIGHT WITHIN REACH.
--- NOTE | 2016-11-08 19:55 | NUR ---
STARTED BLADDER TRAINING.
--- NOTE | 2016-11-08 23:50 | NUR ---
PT IN BED WITH HOB UP FOR COMFORT. WATCHING TV. BED IN LOWEST POSITION AND CALL LIGHT WITHIN REACH.
--- NOTE | 2016-11-09 00:40 | NUR ---
RESTING IN BED, EYES CLOSED.
--- NOTE | 2016-11-09 01:09 | NUR ---
PT LYING IN BED, EYES CLOSED. CHEST RISING AND FALLING. BED IN LOWEST POSITION AND CALL LIGHT WITHIN REACH.
--- NOTE | 2016-11-09 04:18 | NUR ---
PT IN BED WITH HOB UP FOR COMFORT. EYES CLOSED. CHEST RISING AND FALLING. BED IN LOWEST POSITION AND CALL LIGHT WITHIN REACH.
[2016-11-09 06:01] LABS: BASOPHILS 0.1 % (0-2); EOSINOPHILS 0.8 % (0-7); HEMATOCRIT 30.7 % (36.0-48.0); HEMOGLOBIN 9.8 g/dL (12-16); IMMATURE GRANULOCYTES 3.7 % (0-5); LYMPHOCYTES 10.7 % (15-50); MCH 29.8 pg (26.0-34.0); MCHC 31.9 g/dL (31.0-37.0); MCV 93.3 fL (80.0-100.0); MEAN PLATELET VOLUME 8.8 fL (7.4-10.4); NEUTROPHILS 78.7 % (40-80); PLATELET COUNT 319 10x3/uL (130-400); RBC 3.29 10x6/uL (4.00-5.40); RDW 14.4 % (11.5-14.5); WBC 12.4 10x3/uL (4.8-10.8)
[2016-11-09 06:21] LABS: CALC OSMOLALITY 275 mosm/kg (275-300); CALCIUM 8.6 mg/dL (8.5-10.1); CARBON DIOXIDE 28.4 mmol/L (21.0-32.0); CHLORIDE - SERUM 105 mmol/L (98-107); CREATININE - SERUM 0.6 mg/dL (0.6-1.3); GLUCOSE 89 mg/dL (74-106); POTASSIUM - SERUM 4.2 mmol/L (3.5-5.1); SODIUM 139 mmol/L (136-145); UREA NITROGEN 10 mg/dL (7-18); eGFR NON AFRICAN AMERICAN > 90 mL/min (90-120)
--- NOTE | 2016-11-09 06:31 | NUR ---
D/C'D DAVIDSON CATH DUE TO PT HAVING LEAKAGE AROUND DAVIDSON AND THE PT'S BED GETTING SOILED X2. PT TOLERATED PROCEDURE WELL.
--- NOTE | 2016-11-09 07:30 | NUR ---
PT IS RESTING IN BED WITH EYES OPEN. ALERT AND ORIENTED X 3. PT DENIES ACUTE PAIN OR DISCOMFORT. STATES: "I ONLY HURT WHEN IM MOVING." PT DENIES URGE TO VOID AT THIS TIME, POST DAVIDSON CATH REMOVAL @ 0620. O2 IS ON @ 2LPM PER NC. NO SOB NOTED. LEFT FOREARM SALINE LOCK NOTED. SR'S ARE UP X 3 IN BED. CALL LIGHT AND BEDSIDE TABLE ARE WITHIN EASY REACH.
--- NOTE | 2016-11-09 09:47 | NUR ---
DRESSING TO RIGHT SHOULDER CHANGED. MOD AMOUNT OF SEROUS DRAINAGE NOTED. SITE CLEANSED WITH NS AND NEW DRESSING APPLIED. CLIPS ARE WELL APPROXIMATED. PT DENIES ANY OTHER PAIN OR DISCOMFORT. NO NEEDS VOICED.
[2016-11-09 10:19] VITALS: Ht 154.9 cm; Wt 44.9 kg
--- NOTE | 2016-11-09 12:01 | NUR ---
PT IS RESTING IN HER ROOM FEEDING SELF LUNCH. NO NEEDS VOICED.
--- NOTE | 2016-11-09 16:24 | NUR ---
DRESSING TO RIGHT SHOULDER NOTED TO BE SATURATED IN SLIGHTLY RED CLEAR SEROUS FLUID. DRESSING REMOVED, AND SITE CLEANSED WITH WOUND CARE LINE ERECTOR APPRENTICE. NEW DRESSING APPLIED.
--- NOTE | 2016-11-09 17:33 | NUR ---
SITTING UP EATING SUPPER. DENIES NEEDS. CALL LIGHT IN REACH.
[2016-11-09 19:21] VITALS: BP 113/46
[2016-11-10 07:02] LABS: BASOPHILS 0.1 % (0-2); EOSINOPHILS 1.1 % (0-7); HEMATOCRIT 29.5 % (36.0-48.0); HEMOGLOBIN 9.6 g/dL (12-16); IMMATURE GRANULOCYTES 2.5 % (0-5); LYMPHOCYTES 13.1 % (15-50); MCH 30.3 pg (26.0-34.0); MCHC 32.5 g/dL (31.0-37.0); MCV 93.1 fL (80.0-100.0); MEAN PLATELET VOLUME 8.5 fL (7.4-10.4); MONOCYTES 5.8 % (2-11); NEUTROPHILS 77.4 % (40-80); PLATELET COUNT 303 10x3/uL (130-400); RBC 3.17 10x6/uL (4.00-5.40); RDW 14.5 % (11.5-14.5)
[2016-11-10 07:16] LABS: CALC OSMOLALITY 277 mosm/kg (275-300); CALCIUM 8.1 mg/dL (8.5-10.1); CARBON DIOXIDE 29.8 mmol/L (21.0-32.0); CHLORIDE - SERUM 104 mmol/L (98-107); CREATININE - SERUM 0.6 mg/dL (0.6-1.3); GLUCOSE 102 mg/dL (74-106); SODIUM 139 mmol/L (136-145); UREA NITROGEN 12 mg/dL (7-18); eGFR NON AFRICAN AMERICAN > 90 mL/min (90-120)
[2016-11-10 08:00] VITALS: BP 139/47
--- NOTE | 2016-11-10 18:06 | NUR ---
HAS BEEN SITTING UP VISITING WITH DAUGHTERS. DENIES PAIN OR WORSE SOB. WEARING OXYGEN ORDERED AT 4L NC. IS WEAK AND NEEDS MAX ASST TO TRANSFER FROM BED TO W/C AND BACK. DSG TO RT CLAVICLE AND SHOULDER AREA IS INTACT. NO DRAINAGE NOTED TO SEEP THROUGH DSG AT PRESENT.
--- NOTE | 2016-11-10 19:45 | NUR ---
PT. IN BED WITH HOB UP FOR COMFORT AND RLE ELEVATED UP ON PILLOW. DRESSING TO RIGHT SHOULDER AREA COVERING HER KYMBERLY. BRUISING ENTIRE RIGHT SHOULDER AREA FROM FALL. ASSESSMENT COMPLETED. CALL LIGHT WITHIN REACH.
[2016-11-10 19:50] VITALS: BP 118/40
--- NOTE | 2016-11-10 23:07 | NUR ---
PT. IN BED WITH HOB UP FOR COMFORT AND LYING ON HER LEFT SIDE. EYES CLOSED AND RESP. EVEN. CALL LIGHT WITHIN REACH.
--- NOTE | 2016-11-11 03:05 | NUR ---
PT. IN BED WITH HOB UP FOR COMFORT. EYES CLOSED AND RESP. DEEP AND EVEN. CALL LIGHT WITHIN REACH.
--- NOTE | 2016-11-11 07:45 | NUR ---
LYING IN BED SUPINE EYES OPEN RESTING. OFFERS NO COMPLAINTS. ALERT AND ORIENTED. CALL LIGHT IN REACH. WILL CONTINUE TO MONITOR
[2016-11-11 08:00] VITALS: BP 114/53
--- NOTE | 2016-11-11 10:00 | NUR ---
SITTING UP IN BED C/O PAIN ADMINISTERED 5MG OF NORCO FOR RIGHT SHOULDER. HAD A DISCUSSION ABOUT THE NICOTINE PATCH WITH PT DUE TO NOT UNDERSTANDING THE NEED TO HAVE. ONCE I EXPLAINED IT TO HER SHE UNDERSTOOD AND WAS WILLING TO PUT A NEW PATCH ON. NO OTHER CONCERNS VOICED. CALL LIGHT IN REACH. WILL CONTINUE TO MONITOR.
--- NOTE | 2016-11-11 14:21 | NUR ---
VISITING WITH FAMILY.CL IN REACH.
--- NOTE | 2016-11-11 18:24 | NUR ---
SITTING UP ON SIDE OF BED C/O PAIN IN RIGHT SHOULDER. ADMINISTERED PAIN MEDS. DAUGHTER AT BEDSIDE. CALL LIGHT IN REACH. WILL CONTINUE TO MONITOR
--- NOTE | 2016-11-11 19:30 | NUR ---
PT. IN BED WITH HOB UP FOR COMFORT AND WATCHING TV. NO VOICED NEEDS AT THIS TIME. ASSESSMENT COMPLETED. CALL LIGHT WITHIN REACH.
[2016-11-11 20:00] VITALS: BP 132/39
--- NOTE | 2016-11-11 23:27 | NUR ---
PT. IN BED WITH HOB UP FOR COMFORT. EYES CLOSED AND RESP. EVEN. CALL LIGHT WITHIN REACH.
--- NOTE | 2016-11-12 03:17 | NUR ---
PT. IN BED WITH HOB UP FOR COMFORT WITH EYES CLOSED AND RESP. EVEN. CALL LIGHT WITHIN REACH.
[2016-11-12 07:52] VITALS: BP 131/48
--- NOTE | 2016-11-12 09:50 | NUR ---
REMOVED NICOTINE PATCH FROM LEFT UPPER ARM. PUT NEW NICOTINE PATCH ON LEFT UPPER CHEST.
--- NOTE | 2016-11-12 12:00 | NUR ---
WILL CONTINUE TO MONITOR.
--- NOTE | 2016-11-12 12:30 | NUR ---
SITTING UP IN BED EATING LUNCH. DAUGHTER AT BEDSIDE. CALL LIGHT IN REACH
--- NOTE | 2016-11-12 18:00 | NUR ---
SITTING UP IN BED VISITING WITH FAMILY. OFFERS NO COMPLAINTS. CALL LIGHT IN REACH WILL CONTINUE TO MONTIOR
--- NOTE | 2016-11-12 19:30 | NUR ---
PT. IN BED WITH HOB UP FOR COMFORT AND PILLOW UNDER RIGHT SHOULDER FOR SUPPORT. PT. VISITING WITH DAUGHTER. ANSWERED DAUGHTER'S QUESTIONS. DAUGHTER WANTS TO SEE PT'S X-RAYS AND SHE STATES RADIOLOGY ALREADY TOLD HER SHE JUST NEEDS TO BRING PT'S AUTOMOBILE LICENSE FOR I.D. ASSESSMENT COMPLETED. NO VOICED NEEDS AT THIS TIME BUT PT. REQUESTS PAIN MEDICATION EVERY 4 HOURS WHEN SHE IS AWAKE. CALL LIGHT WITHIN REACH.
[2016-11-12 20:00] VITALS: BP 127/37
--- NOTE | 2016-11-12 23:22 | NUR ---
PT. IN BED WITH HOB UP FOR COMFORT WATCHING TV. PT. WAITING FOR PAIN MEDICATION AND INSTRUCTED PT. I WOULD BE BRINGING IT TO HER SOON. CALL LIGHT WITHIN REACH.
--- NOTE | 2016-11-13 03:15 | NUR ---
PT. IN BED WITH HOB UP FOR COMFORT WITH EYES CLOSED AND RESP. EVEN. CALL LIGHT WITHIN REACH.
[2016-11-13 06:59] LABS: BASOPHILS 0.2 % (0-2); EOSINOPHILS 1.5 % (0-7); IMMATURE GRANULOCYTES 1.2 % (0-5); LYMPHOCYTES 14.3 % (15-50); MCH 30.5 pg (26.0-34.0); MCHC 32.4 g/dL (31.0-37.0); MCV 94.2 fL (80.0-100.0); MEAN PLATELET VOLUME 8.5 fL (7.4-10.4); MONOCYTES 6.6 % (2-11); NEUTROPHILS 76.2 % (40-80); PLATELET COUNT 354 10x3/uL (130-400); RBC 3.61 10x6/uL (4.00-5.40); RDW 15.4 % (11.5-14.5); WBC 9.3 10x3/uL (4.8-10.8)
[2016-11-13 07:31] LABS: CALC OSMOLALITY 275 mosm/kg (275-300); CALCIUM 8.4 mg/dL (8.5-10.1); CHLORIDE - SERUM 103 mmol/L (98-107); CREATININE - SERUM 0.6 mg/dL (0.6-1.3); GLUCOSE 78 mg/dL (74-106); POTASSIUM - SERUM 4.4 mmol/L (3.5-5.1); SODIUM 139 mmol/L (136-145); UREA NITROGEN 11 mg/dL (7-18); eGFR NON AFRICAN AMERICAN > 90 mL/min (90-120)
--- NOTE | 2016-11-13 08:02 | NUR ---
SITTING UP IN BED EATING BREAKFAST. DENIES NEEDS OR C/O. CALL LIGHT IN REACH
[2016-11-13 08:29] VITALS: BP 129/42
--- NOTE | 2016-11-13 11:21 | RHP ---
PATIENT: AKIKO MANN MEDICAL RECORD: [id number] ACCOUNT: [id number] LOCATION:[id number] : 35 ADMISSION DATE: 11/08/16 REHABILITATION HISTORY AND PHYSICAL EXAMINATION POST ADMISSION PHYSICIAN EXAMINATION Post-admission Physical Examination and History and Physical DATE OF ADMISSION: 11/09/2016 HISTORY OF PRESENT ILLNESS: The patient is admitted to the inpatient rehab with a major multiple trauma without brain or spinal injury with fracture to the posterior aspects of her right fourth through sixth ribs and lateral aspect of the right fourth through seventh ribs, status post ORIF of a right clavicular fracture and thoracentesis due to moderate-sized layering of a right pleural effusion contributing to atelectasis to the dependent portion of the right lung. She is an 81-year-old, she rolled out of bed and landed on the floor the night of October 28. She presented to the emergency department with great pain in her right shoulder and rib cage. X-ray showed a right distal clavicular fracture, mildly displaced fifth rib through seventh rib fracture. She has undergone an ORIF of the right clavicular region and is currently nonweightbearing. She had a stay in the CV ICU post-surgery. She has had some postop anemia. She has required increased oxygen via nasal cannula. Postop, she has been transferred out to the medical floor. She was independent with ADLs and mobility prior to this hospitalization. Currently, she is set up for total assist for ADLs and nonweightbearing to the right upper extremity, moderate assist to total assist for mobility. Plan is to get well enough to be able to travel to her daughter's home out of state upon discharge for further rehab if needed. COMORBIDITIES: In this patient include oropharyngeal dysphagia, metabolic encephalopathy, emphysema, multiple rib fractures, right upper lobe pneumonia, right lower lobe compression atelectasis, hypertension, hypothyroidism, history of smoking, coronary artery disease, peripheral arterial disease, gastroesophageal reflux disease, anemia, debility, hypertension, coronary artery disease, hypothyroidism, chronic dyspnea and pleural effusion. PAST MEDICAL HISTORY: Significant for thyroid problems, hypothyroidism, hypertension, stents and angioplasty, coronary artery disease, peripheral vascular disease, coronary artery problems with the right leg, COPD, O2 dependence, depression, and smoker. PAST SURGICAL HISTORY: Includes gallbladder surgery, hernia, appendectomy, T&A, carpal tunnel, cataract surgery, left shoulder scope, ORIF of the left hip and right total hip. ALLERGIES: LEXAPRO, PENICILLIN, MORPHINE, KEFLEX AND TIOTROPIUM. CURRENT MEDICATIONS: Include Levaquin 750 mg IV q.24 hours, nicotine patch daily, levothyroxine 50 mcg daily, ferrous sulfate 325 mg daily, Lovenox 40 mg daily, Plavix 75 mg daily, atenolol 25 mg daily, acetaminophen 325 mg q.4 hours p.r.n., lorazepam 1 mg t.i.d. p.r.n., DuoNeb updrafts as needed, hydrocodone 5/325 as needed for pain, hydrochlorothiazide 25 mg daily as needed for fluid retention, Mucinex 1200 mg b.i.d., Neurontin 300 mg at bedtime, Cleocin 600 mg q.12 hours p.r.n., Ventolin updrafts as needed and polyethylene glycol 17 grams in 8 ounces of water daily. HISTORY AND PHYSICAL [id number] AKIKO MANN HABITS: Does have a history of tobacco use. FAMILY HISTORY: Noncontributory. SOCIAL HISTORY: Once again, the patient hopes to get well enough so she can travel to her daughter's residence and maybe continue with acute rehab. REVIEW OF SYSTEMS: GENERAL: Does complain of weakness and fatigue. HEENT: Denies cold, cough, or congestion. CARDIOVASCULAR: Denies any chest pain. LUNGS: Does complain of some shortness of breath and pain upon inspiration. PHYSICAL EXAMINATION: VITAL SIGNS: Stable. She is afebrile. GENERAL: Elderly female in no acute distress, alert upon exam. HEENT: Normocephalic and atraumatic. Mucosa moist. NECK: Supple. No lymphadenopathy. LUNGS: Clear at this time, although she does have a problem taking in a deep breath. ABDOMEN: Benign. EXTREMITIES: No clubbing, cyanosis or edema. NEUROLOGIC: Slow to mentate, but seems intact. LABORATORY DATA: Her white count is 12.4, H&H 9.8 and 30.7, her platelet count is noted to be 319. Sodium 139, potassium 4.2, BUN and creatinine of 10 and 0.6 and blood sugar is noted to be 89. ASSESSMENT: This is an 81-year-old female patient admitted to rehab with a working diagnosis of major multiple trauma without brain injury. Patient has potential to make improvement. We instituted the following multidisciplinary therapies including, but not limited to physical, occupational, respiratory, speech, nutritional services, prosthetics and orthotics. Given her complex condition and risk for more complications, rehabilitation services cannot be provided at a lower level of care such as a senior care facility. PLAN: 1. Admit to [facility] rehab for intensive inpatient therapy to include the following disciplines: A. Physical therapy to improve gait, all transfer skills and bed mobility to a modified independent level. B. Occupational therapy to improve activities of daily living to a modified independent level. C. Case management to assist with discharge planning and placement options. D. Nutrition to assist with nutritional needs. E. Rehabilitation nursing to assist in monitoring the patient's underlying medical conditions and to assist with any type of bowel or bladder management. 2. The patient's current medication and medical care will be continued. 3. The patient will be placed on standard fall precautions. 4. We will update FIM scores as available. 5. We will discuss with care team during staff meeting this next week. TRANSINT:[id number] Voice Confirmation ID: [id number] DOCUMENT ID: [id number] HISTORY AND PHYSICAL [id number] AKIKO MANN notes whether there has been none or any medical/functional change since admission: - No change since prescreen. MIRANDA attests patient continues to be appropriate for IRF: - Continues to be appropriate. ELYSSA CORLEY MD at 1121 CC: [id number] DICTATION DATE: 11/09/16 0852 WINDOW MACHINE OPERATOR: 11/09/16 1027 ADM IN [place] [id number] [place] [address]
--- NOTE | 2016-11-13 16:08 | NUR ---
RESTING QUIETLY IN BED. HAS BEEN SITTING UP IN CHAIR AND GOT TIRED. PAIN MEDS GIVEN REQUESTED Q4 HRS. DENIES WORSE SOB.
--- NOTE | 2016-11-13 18:22 | NUR ---
SITTING UP IN BED TALKING TO DTR. TEACHING ON TURNING AT LEAST 30 DEGREES Q2 HRS TO HELP PREVENT SKIN BREAKDOWN.
--- NOTE | 2016-11-13 19:45 | NUR ---
PT RESTING QUIETLY, PT SMILES EASILY WHEN SPEAKING OF HER DAUGHTERS. PT ATE 2 ICE CREAM CUPS WITH ENCOURAGEMENT.
[2016-11-13 21:44] VITALS: BP 140/47
--- NOTE | 2016-11-14 00:01 | NUR ---
PT RESTING QUIETLY IN BED WATCHING TV, DENIES ANY NEEDS OTHER THAN PAIN MEDICATION.
--- NOTE | 2016-11-14 04:57 | NUR ---
PT RESTING WITH EYES CLOSED, RESPIRATIONS REGULAR AND UNLABORED.
[2016-11-14 08:14] VITALS: BP 165/50
--- NOTE | 2016-11-14 15:17 | NUR ---
NUTRITION MONITORING & EVAL CHART REVIEWED. PT TOLERATING REG DIET WITH 50 TO 75% INTAKE MOST MEALS. RECENT BM RECORDED. RD FOLLOWING
--- NOTE | 2016-11-14 16:11 | NUR ---
SITTING UP IN BED TALKING TO DAUGHTER. DENIES NEEDS OR C/O. CALL LIGHT IN REACH
--- NOTE | 2016-11-14 18:48 | NUR ---
RESTING QUIETLY IN BED. DENIES NEEDS OR C/O. CALL LIGHT IN REACH
--- NOTE | 2016-11-14 19:30 | NUR ---
PT WATCHING TV, PT SMILES FREELY AND IS CONVERSIVE. ASSISTED PATIENT TO BATHROOM, PT REQUIRED VERBAL AND PHYSICAL CUES TO SIT ON COMMODE. PT REQUIRED VERBAL CUES TO OBTAIN SITTING POSITION DURING TRANSFER FROM BED TO CHAIR TO POSITION SELF FOR A SITTING POSITION IN W/C.
[2016-11-14 20:09] VITALS: BP 136/43
--- NOTE | 2016-11-14 23:00 | NUR ---
PT AWAKE, SALINE LOCK IS PATENT, BUT INSERTION IS PAST 96 HOURS. ATTEMPTED TIMES ONE TO INITIATE NEW SALINE LOCK SITE WAS UNSUCCESSFUL. PT DIDN'T TOLERATE VERY WELL.
--- NOTE | 2016-11-15 04:54 | NUR ---
PT RESTING QUIETLY, RESPIRATIONS REGULAR AND UNLABORED, NO S/S OF ACUTE DISTRESS.
[2016-11-15 08:26] VITALS: BP 116/37
--- NOTE | 2016-11-15 08:45 | NUR ---
PT AM MEDS ADMINISTERED. PT HAS MIN SEROSANG DRAINAGE FROM RT SHOULDER INCISION. PT DENIES NEEDS AT THIS TIME. BED LOW. CL IN REACH.
--- NOTE | 2016-11-15 11:00 | NUR ---
PT REQ AND REC'D PAIN MEDICATION PER ORDER. PT DENEIS FURTHER NEED.S WCTM.
--- NOTE | 2016-11-15 15:31 | NUR ---
PT REQ AND REC'D PRN PAIN MEDICATION PER ORDERS. WCTM.
--- NOTE | 2016-11-15 16:22 | NUR ---
CARE TEAM MEETING: PHILLIP ATTENDED MEETING. AT TIME OF DISCHARGE FAMILY WOULD LIKE TO MOVE PATIENT TO HER HOME OUT OF STATE. TENATIVE DISCHARGE DATE IS 11/17/16. PATIENT MAY POSSIBLE DISCHARGE TO A SNF FACILITY FOR A COUPLE MORE WEEKS OF THERAPY TO TOLERATE MOVE. WILL CONTINUE TO FOLLOW WITH PATIENT , SHE ASK THAT WE TALK IN THE AM FOR WHICH FACILITY SHE WILL CHOOSE.
--- NOTE | 2016-11-15 19:30 | NUR ---
PT REQUESTED AND REC'D PRN PAIN MEDICATION FOR PAIN LEVEL 7/10 TO RT SHOULDER AND LEG PER ORDERS. WCTM.
[2016-11-15 20:15] VITALS: BP 124/53
--- NOTE | 2016-11-15 20:15 | NUR ---
PT RECEIVED LYING IN BED AAOX3 WATCHING TV AT THIS TIME. ASSESSMENT COMPLETED PER FLOW SHEET. PT REQUESTS TO GET UP AND USE RESTROOM. ASSISTED PT TO RESTROOM. PT VOIDED AT THIS TIME. ASSISTED PT BACK TO BED. PT DENIES OTHER NEEDS. BED LOW. PHONE AND CALL LIGHT IN REACH. SRX2.
--- NOTE | 2016-11-15 21:59 | NUR ---
PM MEDS GIVEN AT THIS TIME. ASSISTED PT TO RESTROOM. DENIES OTHER NEEDS. BED LOW. PHONE AND CALL LIGHT IN REACH. SRX2.
--- NOTE | 2016-11-15 23:32 | NUR ---
PT RESTING QUIETLY AT THIS TIME WITH EYES CLOSED. RESPIRATIONS EVEN, NON-LABORED. NO ACUTE DISTRESS NOTED AT THIS TIME. BED LOW. PHONE AND CALL LIGHT IN REACH. SRX2.
--- NOTE | 2016-11-16 01:45 | NUR ---
PT RESTING QUIETLY AT THIS TIME WITH EYES CLOSED. AROUSED EASILY. DENIES NEEDS AT THIS TIME. BED LOW. PHONE AND CALL LIGHT IN REACH. SRX2.
--- NOTE | 2016-11-16 03:15 | NUR ---
CHANGED PT BRIEF AT THIS TIME DUE TO INCONTINENT VOID. PT DENIES OTHER NEEDS. BED LOW. PHONE AND CALL LIGHT IN REACH. SRX2.
--- NOTE | 2016-11-16 07:53 | NUR ---
SITTING UP IN BED ALERT AND ORIENTED PLEASANT AFFECT. OFFERS NO COMPLAINTS. WILL CONTINUE TO MONITOR.
[2016-11-16 09:44] VITALS: BP 168/52
--- NOTE | 2016-11-16 10:00 | NUR ---
UP IN WC ACTIVE IN THERAPY.
--- NOTE | 2016-11-16 10:59 | NUR ---
IN GYM WITH PHYSICAL THERAPY, PASCUAL LITTLE. TOLERATING WELL
--- NOTE | 2016-11-16 14:27 | NUR ---
SITTING UP IN WC WATCHING TV. OFFERS NO COMPLAINTS. CALL LIGHT IN REACH. WILL CONTINUE TO MONITOR
--- NOTE | 2016-11-16 18:08 | NUR ---
SITTING UP IN W/C. FAMILY AT BEDSIDE. OFFERS NO COMPLAINTS. CALL LIGHT IN REACH. WILL CONTINUE TO MONITOR
[2016-11-16 19:10] VITALS: BP 155/49
--- NOTE | 2016-11-16 19:10 | NUR ---
PT RECEIVED SITTING UP IN WHEELCHAIR AAOX3 WATCHING TV AT THIS TIME. PT REQUESTS TO USE RESTROOM AT THIS TIME. ASSISTED PT TO RESTROOM. PT HAD SMALL, FORMED BM AND VOIDED. ASSSISTED PT BACK TO BED. ASSESSMENT COMPLETED PER FLOW SHEET AT THIS TIME. PT DENIES NEEDS. BED LOW. PHONE AND CALL LIGHT IN REACH. SRX2
--- NOTE | 2016-11-16 21:12 | NUR ---
PM MEDS GIVEN AT THIS TIME. ASSISTED PT TO RESTROOM. PT VOIDED. ASSISTED PT BACK TO BED. PT DENIES OTHER NEEDS. BED LOW. PHONE AND CALL LIGHT IN REACH. SRX2.
--- NOTE | 2016-11-17 04:10 | NUR ---
PT RESTING QUIETLY IN BED AT THIS TIME WITH EYES CLOSED. RESPIRATIONS EVEN, NON-LABORED. NO ACUTE DISTRESS NOTED AT THIS TIME. BED LOW. PHONE AND CALL LIGHT IN REACH. SRX2.
--- NOTE | 2016-11-17 07:35 | NUR ---
RESTING QUIETLY IN BED. NO S/S DISTRESS. CALL LIGHT IN REACH
--- NOTE | 2016-11-17 08:00 | NUR ---
ASSISTED PT TO RESTROOM AND BACK TO ROOM. SET UP BREAKFAST TRAY. OFFERS NO COMPLAINTS. WILL CONTINUE TO MONITOR CALL LIGHT IN REACH
[2016-11-17 08:15] VITALS: BP 123/57
--- NOTE | 2016-11-17 08:30 | NUR ---
PER DR. MARTIN KYMBERLY ARE TO BE REMOVED FROM RIGHT CLAVICLE INCISION TODAY BEFORE GOING TO [facility]. WELL LEFT WRIST IV.
--- NOTE | 2016-11-17 09:30 | NUR ---
ADMINISTERED MORNING MEDS WELL ATIVAN 1MG AND NORCO 5MG PER PT REQUEST FOR ANXIETY AND PAIN IN RIGHT CLAVICLE AND RIGHT RIBCAGE 10/23. PERFORMED STAPLE REMOVAL FROM RIGHT CLAVICLE AREA REMOVED DRESSING AND CLEANED AREA WITH PROVIODINE. REMOVED 19 KYMBERLY AND APPLIED STERI STRIPS. REMOVED LEFT WRIST IV CATHETHER INTACT. APPLIED 2X2 PRESSURE DRESSING. TOLERATED WELL OFFERS NO COMPLAINTS. CALL LIGHT IN REACH. FAMILY WITH PATIENT TO ASSIST WITH DRESSING.
--- NOTE | 2016-11-17 10:00 | NUR ---
REVIEWED DISCHARGE INSTRUCTIONS AND MEDICATIONS WITH PT AND FAMILY. NO CONCERNS VOICED AT THIS TIME. ALL BELONGINGS PACKED UP BY FAMILY
--- NOTE | 2016-11-17 10:36 | NUR ---
PATIENT DISCHARGING TO [facility]. NO HOME HEALTH OR DME NEEDED AT THIS TIME. DR. GARNETT 11/20/16 @ 9:30. DR. RICKS APPOINTMENT WILL BE MADE AT TIME OF DISCHARGE FROM FACILITY. PATIENT CHOICE FORM FOR SNF AND [facility] FORM SIGNED, EXPLAINED AND FILED IN CHART.
--- NOTE | 2016-11-17 11:00 | NUR ---
ELECTRICIAN WIRING FROM [employer] ESCORTED PT OUT VIA WHEELCHAIR ACCOMPAINED BY FAMILY. FAMILY CARRIED BELONGING OUT TO PERSONAL VEHICLE. COPY OF DISCHARGE INSTRUCTIONS WAS GIVEN TO FAMILY
--- NOTE | 2016-11-17 11:30 | NUR ---
REPORT GIVEN TO [facility] AND FAXED OF DC INFORMATION
== END 2016-11-17 15:17 | DRG 559 ==
LOC: D.REHAB 17:05
PROVIDERS: ADMIT Emergency Medicine
DX: S22.41XD Multiple fractures of ribs, right side, subsequent encounter for fracture with routine healing (principal); G93.41 Metabolic encephalopathy; J98.11 Atelectasis; S42.031D Displaced fracture of lateral end of right clavicle, subsequent encounter for fracture with routine healing; W06.XXXD Fall from bed, subsequent encounter; R13.12 Dysphagia, oropharyngeal phase; Z66 Do not resuscitate; J43.9 Emphysema, unspecified; I10 Essential (primary) hypertension; E03.9 Hypothyroidism, unspecified; Z87.891 Personal history of nicotine dependence; I25.10 Atherosclerotic heart disease of native coronary artery without angina pectoris; I73.9 Peripheral vascular disease, unspecified; K21.9 Gastro-esophageal reflux disease without esophagitis; R53.81 Other malaise; D64.9 Anemia, unspecified

== ENCOUNTER 2016-12-26 13:25 | Emergency (ER) | payer MEDICARE, OTHER ==
[2016-11-09 10:19] VITALS: BMI 18.7
== END 2016-12-26 16:30 | disposition home or self-care (01) ==
LOC: D.ER 13:25
DX: M25.551 Pain in right hip (principal); Z96.641 Presence of right artificial hip joint; J44.9 Chronic obstructive pulmonary disease, unspecified; K21.9 Gastro-esophageal reflux disease without esophagitis